=== PATIENT | male | born 1960 | race Two or more races ===

== ENCOUNTER 2021-01-30 15:16 | Emergency (ER) | payer OTHER ==
[~2021-01-30] VITALS: Ht 172.7 cm; Wt 126.1 kg
--- NOTE | 2021-01-30 15:30 | NUR ---
BIB ra frm sn[facility] for evaluation of bleeding gluteal wound when replacing wound vac. On 2lpm via nc. Connected to the monitor and pulse ox. kept comfortable,will continue to monitor accordingly.
[2021-01-30 16:41] LABS: BASOPHILS # (AUTO) 0.1 K/uL (0.0-0.2); HEMOGLOBIN 8.6 g/dL (13.5-17.5); MONOCYTES # (AUTO) 1.8 K/uL (0.1-1.30); NEUTROPHILS # (AUTO) 6.7 K/uL (1.8-8.9)
[2021-01-30 16:50] LABS: BASOPHILS % (AUTO) 0.7 % (0.0-2.0); EOSINOPHILS % (AUTO) 6.7 % (0.0-6.0); HEMATOCRIT 26 % (39-51); LYMPHOCYTES # (AUTO) 1.4 K/uL (0.8-4.8); MEAN CORPUSCULAR HGB CONC 33 g/dl (31.0-36.0); MEAN CORPUSCULAR VOLUME 86 fL (80-96); MONOCYTES % (AUTO) 16.6 % (2.0-12.0); PLATELET COUNT (AUTO) 273 K/uL (150-450); RED BLOOD CELL COUNT(AUTO) 3.04 MIL/uL (4.5-6.0); WHITE BLOOD COUNT (AUTO) 10.6 K/uL (4.3-11.0)
[2021-01-30 17:27] LABS: BAND % (MANUAL) 1 % (0.0-5.0); EOSINOPHILS % (MANUAL) 7 % (0-4); LYMPHOCYTES % (MANUAL) 6 % (16-48); MONOCYTES % (MANUAL) 21 % (0-11.0); NEUTROPHILS % (MANUAL) 65 (42-76)
--- NOTE | 2021-01-30 17:54 | NUR ---
CALLED [facility] [phone] SPOKE TO [facility] ABOUT TRANSPORT. ETA IS [id number]
[2021-01-30 18:41] VITALS: BP 118/77
--- NOTE | 2021-01-30 18:42 | NUR ---
patient picked up by private ambulance in no distress going back to [facility].
== END 2021-01-30 18:42 ==
LOC: ER 15:19
DX: L89.159 Pressure ulcer of sacral region, unspecified stage (principal); E11.9 Type 2 diabetes mellitus without complications
CPT/HCPCS: 36415; 85025-TC